=== PATIENT | female | born 1955 | race African-American/Black ===

== ENCOUNTER → 2017-04-13 | Outpatient (CLI) | payer MEDICARE ==
[~2017-04-13] MED LIST: ADVIL200 M3 PO; CARTIA XT PO; HYDROCODON-ACE1 EAC5 PO; LIPITOR40 MG PO; LISINOPRIL-HCTZ1 T14 PO; NEURONTIN600 MG PO; PLETAL100 M1 PO; PROTONIX PO; VITAMIN D250000 UNIT PO; ZESTORETIC 20/21 TAB PO
--- NOTE | ~2017-04-13 | US6 ---
[facility] A Service of [facility] RADIOLOGY TEXT RESULTS PATIENT: DANN BARONE DECEMBER LOCATION: [facility] : 57 UNIT #: [id number] AGE: [address]: Willie Maki MD SEX: F ORDER DR: [id number] [facility] [address] [place], [place] [address] [id number] O MR#: [id number] #: [id number] NAME: DANN BARONE : 1955 SEX: F STUDY DATE/TIME: 04/13/2017 9:36 UNIT: [facility] ROOM: STUDY DESCRIPTION: US Abdominal Limited Attending Physician: Willie Maki M.D. Referring Physician: Willie Maki M.D. Ordering Physician: Willie Maki M.D. Primary Care Physician: Syeda Nair M.D. MEDICAL IMAGING REPORT This report is preliminary unless electronic signature is present EXAM Right upper quadrant ultrasound INDICATION Right upper quadrant pain starting 3 weeks ago. Patient also reports crushing back pain. The pain is evidently intermittent. The patient had some symptoms last year as well. TECHNIQUE Luna-scale and color Doppler sonographic images were obtained through the right upper quadrant. FINDINGS Liver measures within normal size limits, although it is somewhat heterogeneous in echotexture. Hostess Host questions some scalloping of the surface of the liver which can be seen in the setting of cirrhosis. However this is not convincingly demonstrated on the submitted images. Patient reportedly has a history of hepatitis C however. There is limited visualization of the pancreas. There is no intra- or extrahepatic biliary dilatation. The right kidney has a cyst arising from its superior pole. No hydronephrosis is seen. Hostess Host questions a contracted gallbladder with stones within it. Again I am not convinced this is demonstrated on the submitted images. Patient has no history of cholecystectomy on any of the supplied documents. The gallbladder has not been seen on any of the patient's prior ultrasounds. IMPRESSION 1. Hostess Host questions a scalloped margin to the liver which can be seen in the setting of cirrhosis, however this is not really convincingly demonstrated on the submitted images. Overall, liver parenchyma appears somewhat heterogeneous and patient does have a history of hepatitis C. I do not see any focal hepatic lesions. 2. Right renal cyst. [facility] A Service of [facility] RADIOLOGY TEXT RESULTS PATIENT: DANN BARONE DECEMBER LOCATION: [facility] : 57 UNIT #: [id number] AGE: [address]: Willie Maki MD SEX: F ORDER DR: 3. Sonography has denoted an area that is possibly the gallbladder. This is not convincingly demonstrated as the gallbladder on the submitted images. The patient has had multiple prior ultrasounds none of which have demonstrated the gallbladder although the patient does not report any history of cholecystectomy. At this point, I would suggest further evaluation with CT or MRI for more accurate assessment. Of note, I do not see any convincing evidence of acute cholecystitis. Dictated by... Katherine Cazares M.D. THIS IS AN ELECTRONICALLY VERIFIED REPORT Katherine Cazares M.D. at 04/13/2017 4:58 PM PEDRO/perla TD: 04/13/2017 12:41 JOB #: [id number] MEDICAL IMAGING REPORT Page 1 of 1 COPY
== END | disposition home or self-care (01) ==
LOC: CWCC 09:00
DX: R10.11 Right upper quadrant pain (principal); K76.9 Liver disease, unspecified; Z86.19 Personal history of other infectious and parasitic diseases; N28.1 Cyst of kidney, acquired
CPT/HCPCS: 76705